=== PATIENT | female | born 1970 | race Two or more races ===

== ENCOUNTER 2017-08-10 13:00 | Inpatient (IN) | payer OTHER ==
[~2017-08-10] VITALS: Ht 165.1 cm; Wt 63.5 kg
[2017-08-10] MEDS ORDERED: ANAPROX PO (14:17)
[2017-08-10] MEDS ORDERED: FLEXERIL PO (14:17)
[2017-08-18] MEDS ORDERED: DOCUSATE SODIU100 MG PO (09:37)
[2017-08-18] MEDS ORDERED: CLONAZEPAM1 MG PO (09:38)
[2017-08-18] MEDS ORDERED: PERCOCET 5-3251 EACH PO (09:38)
== END 2017-08-18 13:17 | disposition home or self-care (01) | DRG 454 ==
LOC: O/R 08-17 05:50 → PED 08-17 05:50 → RECOVERY 08-17 13:00 → PED 08-17 15:20
PROVIDERS: Orthopaedic Surgery Orthopaedic Surgery of the Spine
PROC: 0RG2071 Fusion of 2 or more Cervical Vertebral Joints with Autologous Tissue Substitute, Posterior Approach, Posterior Column, Open Approach (ICD-10-PCS; 2017-08-17)
PROC: 0RT30ZZ Resection of Cervical Vertebral Disc, Open Approach (ICD-10-PCS; 2017-08-17)
PROC: 07DS3ZZ Extraction of Vertebral Bone Marrow, Percutaneous Approach (ICD-10-PCS; 2017-08-17)
PROC: 0RG20A0 Fusion of 2 or more Cervical Vertebral Joints with Interbody Fusion Device, Anterior Approach, Anterior Column, Open Approach (ICD-10-PCS; principal; 2017-08-17 13:30)
DX: M50.01 Cervical disc disorder with myelopathy, high cervical region (principal); M47.12 Other spondylosis with myelopathy, cervical region

== ENCOUNTER 2022-03-27 08:30 | Inpatient (IN) | payer OTHER ==
[~2022-03-27] VITALS: Ht 165.1 cm; Wt 139.7 kg
[~2022-03-27 08:30] MED LIST: ANAPROX PO; CLONAZEPAM1 MG PO; DOCUSATE SODIU100 MG PO; FLEXERIL PO; PERCOCET 5-3251 EACH PO
[2022-03-31] MEDS ORDERED: RESTORIL30 MG (10:27)
[2022-03-31] MEDS ORDERED: GABAPENTIN300 M2 (10:27)
[2022-03-31] MEDS ORDERED: DULOXETINE HCL60 MG (10:27)
[2022-03-31] MEDS ORDERED: AMLODIPINE-BEN1 EAC4 (10:27)
[2022-03-31] MEDS ORDERED: TIZANIDINE HCL4 M1 (10:27)
[2022-03-31] MEDS ORDERED: ZANAFLEX2 MG (10:27)
[2022-03-31] MEDS ORDERED: ETODOLAC500 MG (10:27)
[2022-03-31] MEDS ORDERED: COLACE100 MG PO (10:53)
[2022-03-31] MEDS ORDERED: PERCOCET 5-3251 EACH PO (10:54)
[2022-03-31] MEDS ORDERED: MEDROLPACK PO (10:54)
== END 2022-04-01 15:19 | disposition home or self-care (01) | DRG 473 ==
LOC: O/R 03-31 05:30 → SURH 03-31 07:00
PROVIDERS: ADMIT Orthopaedic Surgery Orthopaedic Surgery of the Spine; ATTEND Orthopaedic Surgery Orthopaedic Surgery of the Spine
PROC: 0RT30ZZ Resection of Cervical Vertebral Disc, Open Approach (ICD-10-PCS; 2022-03-31)
PROC: 07DS0ZZ Extraction of Vertebral Bone Marrow, Open Approach (ICD-10-PCS; 2022-03-31)
PROC: 4A12X4Z Monitoring of Cardiac Electrical Activity, External Approach (ICD-10-PCS; 2022-03-31)
PROC: 0RG10A0 Fusion of Cervical Vertebral Joint with Interbody Fusion Device, Anterior Approach, Anterior Column, Open Approach (ICD-10-PCS; principal; 2022-03-31 07:00)
DX: M50.03 Cervical disc disorder with myelopathy, cervicothoracic region (principal); M48.02 Spinal stenosis, cervical region; I10 Essential (primary) hypertension